=== PATIENT | female | born 2000 | race American Indian/Alaskan Native ===

== ENCOUNTER 2020-04-02 15:16 | Emergency (ER) | payer SELFPAY ==
--- NOTE | 2020-04-02 16:27 | Emergency Department Report ---
HPI - General Chief Complaint: Altered Mental Status Time Seen by Provider: 04/02/20 15:44 - HPI HPI: This is a 19-year-old female presents to the emergency department via EMS from school with a complaint of some chest pressure. Patient says that the chest pressure is midsternal and radiates towards the left side. Apparently the patient began having a panic attack and would not respond to anyone around her so EMS was called. She started answering questions while in route with EMS. At the time of my examination the patient is awake, alert, oriented and answering all questions appropriately. She does admit to having some chest pressure that has been going on intermittently for the past month. Patient says that she had a heart attack in October of last year but thought that she was seen and treated at this hospital. She is a tobacco smoker but denies any illicit drug use. She has not taken anything, nor receive anything, for her symptoms prior to presentation. She also has a past medical history of anxiety for which she takes Zoloft. No recent travel or sick contacts at home. She denies any fever, shortness of breath, cough, lower extremity swelling, nausea, vomiting, back pain or diaphoresis. ED Past Medical Hx - Past Medical History Previous Medical History?: Yes Additional medical history: anxiety - Social History Smoking Status: Current Every Day Smoker Substance Use Type: None ED Review of Systems ROS: Stated complaint: ALTERED MENTAL STATUS Other details as noted in HPI Comment: All other systems reviewed and negative Constitutional: denies: chills, fever Eyes: denies: eye pain, vision change ENT: denies: ear pain, throat pain Respiratory: denies: cough, shortness of breath Cardiovascular: chest pain. denies: palpitations Gastrointestinal: denies: abdominal pain, vomiting Genitourinary: denies: dysuria, discharge Musculoskeletal: denies: back pain, arthralgia Skin: denies: rash, lesions Neurological: denies: headache, weakness Psychiatric: anxiety Physical Exam - Physical Exam Vital Signs: Vital Signs 04/02/20 15:18 Temperature 98.0 F Pulse Rate 69 Respiratory 17 Rate Blood Pressure 106/68 O2 Sat by Pulse 97 Oximetry Physical Exam: GENERAL: The patient is well-developed well-nourished. HENT: Normocephalic. Atraumatic. Patient has moist mucous membranes. EYES: Extraocular motions are intact. NECK: Supple. Trachea is midline. CHEST/LUNGS: Clear to auscultation. There is no respiratory distress noted. There is some reproducible chest wall tenderness to palpation, but no crepitus or deformity. HEART/CARDIOVASCULAR: Regular. There is no tachycardia. There is no murmur. ABDOMEN: Abdomen is soft, nontender. Patient has normal bowel sounds. SKIN: Skin is warm and dry. NEURO: The patient is awake, alert, and oriented. The patient is cooperative. The patient has no focal neurologic deficits. Normal speech. MUSCULOSKELETAL: There is no tenderness or deformity. There is no limitation range of motion. PSYCH: Patient has a flat affect. ED Course Vital Signs 04/02/20 15:18 Temperature 98.0 F Pulse Rate 69 Respiratory 17 Rate Blood Pressure 106/68 O2 Sat by Pulse 97 Oximetry ED Medical Decision Making - Lab Data Result diagrams: 04/02/20 16:19 04/02/20 16:19 Lab Results 04/02/20 04/02/20 04/02/20 Range/Units 16:19 16:19 17:02 WBC 5.1 (4.5-11.0) K/mm3 RBC 4.16 (3.65-5.03) M/mm3 Hgb 13.1 (10.1-14.3) gm/dl Hct 38.2 (30.3-42.9) % MCV 92 (79-97) fl MCH 32 (28-32) pg MCHC 34 (30-34) % RDW 13.8 (13.2-15.2) % Plt Count 226 (140-440) K/mm3 [place] % (Auto) Seismic Plotter Sodium 140 (137-145) mmol/L Potassium 3.9 (3.6-5.0) mmol/L Chloride 103.8 (98-107) mmol/L Carbon Dioxide 25 (22-30) mmol/L Anion Gap 15 mmol/L BUN 15 (7-17) mg/dL Creatinine 0.8 (0.6-1.2) mg/dL Estimated GFR > 60 ml/min BUN/Creatinine Ratio 19 % Glucose 74 (65-100) mg/dL Calcium 8.7 (8.4-10.2) mg/dL Troponin T < 0.010 (0.00-0.029) ng/mL Urine HCG, Qual (Negative) Urine Opiates Screen Negative Urine Methadone Screen Negative Ur Barbiturates Screen Negative Ur Phencyclidine Scrn Negative Ur Amphetamines Screen Negative U Benzodiazepines Scrn Negative Urine Cocaine Screen Negative U Marijuana (THC) Screen Negative Drugs of Abuse Note Disclamer 04/02/20 Range/Units 17:02 WBC (4.5-11.0) K/mm3 RBC (3.65-5.03) M/mm3 Hgb (10.1-14.3) gm/dl Hct (30.3-42.9) % MCV (79-97) fl MCH (28-32) pg MCHC (30-34) % RDW (13.2-15.2) % Plt Count (140-440) K/mm3 [place] % (Auto) Sodium (137-145) mmol/L Potassium (3.6-5.0) mmol/L Chloride (98-107) mmol/L Carbon Dioxide (22-30) mmol/L Anion Gap mmol/L BUN (7-17) mg/dL Creatinine (0.6-1.2) mg/dL Estimated GFR ml/min BUN/Creatinine Ratio % Glucose (65-100) mg/dL Calcium (8.4-10.2) mg/dL Troponin T (0.00-0.029) ng/mL Urine HCG, Qual Negative (Negative) Urine Opiates Screen Urine Methadone Screen Ur Barbiturates Screen Ur Phencyclidine Scrn Ur Amphetamines Screen U Benzodiazepines Scrn Urine Cocaine Screen U Marijuana (THC) Screen Drugs of Abuse Note - EKG Data -: EKG Interpreted by Ri EKG shows normal: sinus rhythm, axis, intervals, QRS complexes, ST-T waves Rate: normal - EKG Data When compared to previous EKG there are: previous EKG unavailable Interpretation: normal EKG - Radiology Data Radiology results: image reviewed interpreted by me: Chest x-ray does not show any acute process. There are no pleural effusions, obvious pneumonia and there is no pneumothorax. No significant cardiomegaly. - Medical Decision Making This patient presented to the emergency department with a complaint of chest pain. At first there was concern that the patient had an unresponsive episode, but it sounds more consistent with a panic attack. Since being in the emergency department, the patient has been awake, alert, oriented and responding to all questions and commands. She has a slightly flat affect but otherwise does not display any signs of acute psychosis. EKG does not have any morphology consistent with ST elevation myocardial infarction or any dysrhythmia. Chest x- ray does not show any pneumonia, pleural effusions, pneumothorax, focal consolidation, or any other acute process. Patient's labs have been unremarkable including CBC, metabolic panel and a negative troponin. Urine drug screen is negative. The patient is not . Vital signs have been reassuring throughout her ED course including being afebrile. The patient is low on the heart and NAHED score criteria. She is low on the Wells score criteria and negative on the pulmonary embolism rule out criteria. For all these reasons she appears safe for discharge home at this time. Her contact information has been sent over to the [facility], and someone from their office should be contacting her shortly for close outpatient follow-up as part of our [facility] low risk chest pain protocol. She will return to the emergency department with any worsening of her symptoms or with any acute distress. Critical Care Time: No Critical care attestation.: If time is entered above; I have spent that time in minutes in the direct care of this critically ill patient, excluding procedure time. ED Disposition Clinical Impression: Atypical chest pain, Anxiety Disposition: DC-01 TO HOME OR SELFCARE Is pt being admited?: No Condition: Stable Instructions: Nonspecific Chest Pain, Adult, Managing Anxiety, Adult, Chest Pain (ED) Additional Instructions: Please follow-up with a primary care physician in the next few days. Your contact information has been sent over to the [facility], and someone from their office should be contacting her shortly for close outpatient follow-up. Return to the emergency department with any worsening of your symptoms, new or concerning symptoms not addressed during this current emergency department visit, or with any acute distress. Referrals: PRIMARY CARE, [Primary Care Provider] - 2-3 Days OLLIE BLAKELY MD [Staff Physician] - 2-3 Days Time of Disposition: 19:41 Heart Score - HEART Score History: Slightly suspicious EKG: Normal Age: < 45 Risk factors: 1-2 risk factors Troponin: < normal limit HEART Score: 1 NAHED score - Nahed Score Age > 65: (0) No Aspirin use within the Past 7 Days: (0) No 3 or more CAD Risk Factors: (0) No 2 or more Angina events in past 24 hrs: (1) Yes Known CAD with more than 50% Stenosis: (0) No Elevated Cardiac Markers: (0) No ST Deviation Greater than 0.5mm: (0) No NAHED Score: 1
[2020-04-02 16:43] LABS: Hematocrit 38.2 % (30.3-42.9); Hemoglobin 13.1 gm/dl (10.1-14.3); Mean Corpuscular HGB Conc 34 % (30-34); Mean Corpuscular Volume 92 fl (79-97); Platelet Count 226 K/mm3 (140-440); Red Blood Count 4.16 M/mm3 (3.65-5.03); Red Cell Distribution Width 13.8 % (13.2-15.2)
[2020-04-02 17:06] LABS: BUN/Creatinine Ratio 19; Blood Urea Nitrogen 15 mg/dL (7-17); Calcium 8.7 mg/dL (8.4-10.2); Hemolysis Index 3
[2020-04-02 17:40] LABS: Amphetamine Screen,Urine Negative; Benzodiazepines Screen,Urine Negative; Cannabinoid Screen,Urine Negative; Cocaine Screen,Urine Negative; Methadone Screen,Urine Negative; Opiate Screen,Urine Negative
[2020-04-02 18:29] LABS: HCG Qualitative,Urine Negative (Negative)
--- NOTE | 2020-04-02 19:36 | XRay Report ---
CHEST 2 VIEWS INDICATION / CLINICAL INFORMATION: Chest Pain. Panic attack. COMPARISON: None available. FINDINGS: SUPPORT DEVICES: None. HEART / MEDIASTINUM: No significant abnormality. LUNGS / PLEURA: Clear lungs. No significant pleural effusion. No pneumothorax. ADDITIONAL FINDINGS: No significant additional findings. IMPRESSION: 1. No acute abnormality of the chest. Signer Name: Joel Georges MD Signed: 04/02/2020 7:31 PM Workstation Name: [id number]
[2020-04-02 19:52] VITALS: BP 106/63
[2020-04-02 22:36] LABS: Band Neutrophils # (Manual) 0.1 K/mm3; Ovalocytes Rare; Platelet Estimate Consistent w Auto; Total Cells Counted 100
== END 2020-04-02 20:50 | disposition home or self-care (01) ==
LOC: ED 15:16
DX: F41.9 Anxiety disorder, unspecified (principal); R07.89 Other chest pain; F17.200 Nicotine dependence, unspecified, uncomplicated
CPT/HCPCS: 36415; 71046; 80048; 80307; 81025; 84484; 85007; 85025; 93005